=== PATIENT | male | born 1935 | race Caucasian/White ===

== ENCOUNTER → 2022-11-11 11:28 | Outpatient (CLI) | payer MEDICARE, SELFPAY ==
--- NOTE | 2022-11-11 | DI.MRI.S_ITS ---
PROCEDURE: MR KNEE LT WO CON INDICATIONS: Left knee pain. No history of trauma. TECHNIQUE: Noncontrast sagittal PD fast spin echo and T2 fast spin echo with fat saturation, sagittal 3-D FLASH with fat saturation; coronal T1 spin echo and PD fast spin echo with fat saturation, and axial PD fast spin echo with fat saturation through the knee. COMPARISON: None. FINDINGS: Image quality: Excellent. Menisci: Linear horizontal high T2 signal intensity traverses the inner, middle, and peripheral thirds of the posterior horn medial meniscus, indicating horizontal tearing. Lateral meniscus is intact. Cruciate ligaments: The anterior and posterior cruciate ligaments appear intact. Medial structures: The medial collateral ligament appears intact. Moderate T2 signal elevation surrounds the medial collateral ligament. Visualized portions of the pes anserinus tendons appear normal. No abnormal bursal fluid. Lateral structures: The lateral collateral ligament, long and short heads of the biceps femoris tendon appear intact. The popliteus tendon appears normal. Mild T2 signal elevation within the popliteus muscle. Iliotibial band appears normal. Anterior structures: The quadriceps and patellar tendons appear intact. Patellar alignment is normal. No femoral trochlear dysplasia or ventral trochlear prominence. No edema in the infrapatellar fat pad. Moderate T2 signal elevation within the semimembranosus tendon at the tibial insertion site. Bones and cartilage: Linear low low T1/T2 signal intensity traverses the mid weight-bearing aspect of the lateral femoral condyle, with moderate surrounding ill-defined T2 signal elevation, spanning roughly 30 mm anteroposterior by 15 mm transverse by 10 mm craniocaudal. There is mild depression of the anterior weight-bearing aspect of the lateral femoral condyle, which is depressed by roughly 2 mm. Moderate articular cartilage loss diffusely overlies the weight-bearing aspects of the medial femoral condyle and medial tibial plateau. Mild articular cartilage loss overlies the medial and lateral patellar facets. Joint space: There is a small knee joint effusion and a small Sutherland's cyst. Normal appearing synovial plicae are incidentally noted. IMPRESSION: 1. 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 2. Medial meniscal tear. 3. Tricompartmental osteoarthritis with associated articular cartilage loss. 4. Knee joint effusion and Sutherland's cyst. 5. Medial collateral ligament strain. 6. Popliteus strain. 7. Insertional tendinitis of the semimembranosus. Dictated by: Ruby Ca M.D. on 11/11/2022 at 12:53 Approved by: Ruby Ca M.D. on 11/11/2022 at 12:57
== END ==
PROVIDERS: PCP Family Medicine; Referring Provider Family Medicine; Visit Provider Family Medicine
DX: M87.852 Other osteonecrosis, left femur (principal); S83.242A Other tear of medial meniscus, current injury, left knee, initial encounter; M17.12 Unilateral primary osteoarthritis, left knee; M76.892 Other specified enthesopathies of left lower limb, excluding foot; S83.412A Sprain of medial collateral ligament of left knee, initial encounter; M25.562 Pain in left knee; M25.462 Effusion, left knee; R26.89 Other abnormalities of gait and mobility
CPT/HCPCS: 73721

== ENCOUNTER → 2024-08-28 06:46 | Outpatient (CLI) | payer MEDICARE, SELFPAY ==
[2024-08-28 09:24] LABS: Hematocrit 44.4 % (41-53); Hemoglobin 15.2 g/dL (13.5-17.5); Mean Corpuscular HGB Conc 34.3 % (30-36); Mean Corpuscular Hemoglobin 32.7 PG (26-34); Mean Corpuscular Volume 95.3 fL (80-100); Platelet Count 189 X10^3/uL (150-400)
[2024-08-28 09:51] LABS: Alanine Aminotransferase 21 IU/L (<50); Albumin 3.8 g/dL (3.5-5.0); Albumin Globulin Ratio 1.4 (1.0-2.8); Alkaline Phosphatase 69 U/L (38-126); Blood Urea Nitrogen 16 mg/dL (9-20); Calcium 8.8 mg/dL (8.4-10.2); Carbon Dioxide 31 mmol/L (22-32); Chloride 102 mmol/L (98-107); Cholesterol 113 mg/dL (140-199); Estimated Glomerular Filt Rate > 60 mL/min (>60); Globulin 2.8 g/dL (1.7-4.1); Glucose 96 mg/dL (70-99); HDL Cholesterol 42 mg/dL (40-60); HEMOLYSIS < 15 (0-50); Potassium 4.3 mmol/L (3.4-5.1); Sodium 137 mmol/L (137-145); Total Protein 6.6 g/dL (6.3-8.2); Triglycerides 101 mg/dL (35-150); Uric Acid 2.7 mg/dL (3.5-8.5)
[2024-08-28 10:52] LABS: Microalbumi Creatinin Ratio Ur 7.0 ug/mg CR (<30)
== END ==
PROVIDERS: PCP Family Medicine; Referring Provider Family Medicine; Visit Provider Family Medicine
DX: I10 Essential (primary) hypertension (principal); L57.0 Actinic keratosis; R01.1 Cardiac murmur, unspecified; E78.2 Mixed hyperlipidemia; I25.10 Atherosclerotic heart disease of native coronary artery without angina pectoris; M10.9 Gout, unspecified; I48.20 Chronic atrial fibrillation, unspecified
CPT/HCPCS: 36415; 80053; 80061; 82043; 82570; 84550; 85027

== ENCOUNTER → 2025-01-16 15:30 | Outpatient (CLI) | payer MEDICARE, SELFPAY ==
--- NOTE | 2025-01-16 15:35 | DI.RAD.S_ITS ---
PROCEDURE: XR CHEST 2V INDICATIONS: Right foot pain, swelling TECHNIQUE: 2 views of the chest were acquired. COMPARISON: None. FINDINGS: Surgical changes and devices: Median sternotomy wires. Lungs and pleura: Lungs are clear. No pleural effusions or pneumothorax. Mediastinum: Mediastinal contours are normal. Heart size is normal. Bones and chest wall: No suspicious bony abnormalities. Soft tissues appear unremarkable. IMPRESSION: No acute cardiopulmonary abnormality is seen. Dictated by: David Lerma M.D. on 01/16/2025 at 20:08 Approved by: David Lerma M.D. on 01/16/2025 at 20:08
--- NOTE | 2025-01-16 15:35 | DI.RAD.S_ITS ---
PROCEDURE: XR FOOT RT MIN 3V INDICATIONS: Right foot pain, swelling TECHNIQUE: 3 views of the foot were acquired. COMPARISON: None. FINDINGS: Bones: No fractures or dislocations. Mild interphalangeal and midfoot joint degeneration. No suspicious bony lesions. Soft tissues: No tibiotalar joint effusion. Achilles tendon appears normal. Diffuse soft tissue swelling of the foot. IMPRESSION: No acute osseous abnormalities. Mild degenerative changes of the foot. Dictated by: David Lerma M.D. on 01/16/2025 at 20:05 Approved by: David Lerma M.D. on 01/16/2025 at 20:07
[2025-01-16 17:25] LABS: Add Manual Diff / Slide Review NO; Hematocrit 43.4 % (41-53); Hemoglobin 14.9 g/dL (13.5-17.5); Lymphocytes Absolute Auto 1700 /uL (1100-4500); Mean Corpuscular HGB Conc 34.3 % (30-36); Mean Corpuscular Hemoglobin 32.1 PG (26-34); Mean Corpuscular Volume 93.8 fL (80-100); Platelet Count 213 X10^3/uL (150-400)
[2025-01-16 17:47] LABS: Alanine Aminotransferase 17 IU/L (<50); Albumin 4.0 g/dL (3.5-5.0); Albumin Globulin Ratio 1.1 (1.0-2.8); Alkaline Phosphatase 72 U/L (38-126); Blood Urea Nitrogen 20 mg/dL (9-20); Calcium 8.7 mg/dL (8.4-10.2); Carbon Dioxide 27 mmol/L (22-32); Chloride 103 mmol/L (98-107); Estimated Glomerular Filt Rate > 60 mL/min (>60); Globulin 3.5 g/dL (1.7-4.1); Glucose 111 mg/dL (70-99); HEMOLYSIS < 15 (0-50); Magnesium 2.1 mg/dL (1.6-2.3); Potassium 3.9 mmol/L (3.4-5.1); Sodium 138 mmol/L (137-145); Total Protein 7.5 g/dL (6.3-8.2)
[2025-01-16 17:57] LABS: NT-proBNP (BNP-Adult 18+) 651 pg/mL (<450)
== END ==
PROVIDERS: PCP Family Medicine; Referring Provider Family Medicine; Visit Provider Family Medicine
DX: I50.22 Chronic systolic (congestive) heart failure (principal); R60.0 Localized edema; M79.671 Pain in right foot; I48.20 Chronic atrial fibrillation, unspecified
CPT/HCPCS: 71046; 73630; 80053; 83735; 83880; 85025